=== PATIENT | female | born 2000 | race Caucasian/White ===

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

== ENCOUNTER 2018-02-05 06:58 | Inpatient (IN) | payer OTHER ==
[~2018-02-05] VITALS: Ht 167.6 cm; Wt 121.1 kg
[~2018-02-05 06:58] MED LIST: FERROUS SULFAT325 MG PO; FOLIC ACID1 MG PO; PRENATAL TABLE1 EAC1 PO
== END 2018-02-07 12:02 | disposition home or self-care (01) | DRG 775 ==
LOC: LDR 06:58 → OB/GYN 16:21
PROC: 10E0XZZ Delivery of Products of Conception, External Approach (ICD-10-PCS; principal; 2018-02-05)
PROC: 0HQ9XZZ Repair Perineum Skin, External Approach (ICD-10-PCS; 2018-02-05)
PROC: 4A1HXCZ Monitoring of Products of Conception, Cardiac Rate, External Approach (ICD-10-PCS; 2018-02-05)
PROC: 3E033VJ Introduction of Other Hormone into Peripheral Vein, Percutaneous Approach (ICD-10-PCS; 2018-02-05)
PROC: 4A033R1 Measurement of Arterial Saturation, Peripheral, Percutaneous Approach (ICD-10-PCS; 2018-02-05)
DX: O70.0 First degree perineal laceration during delivery (principal); Z3A.39 39 weeks gestation of pregnancy; Z37.0 Single live birth